=== PATIENT | female | born 1970 | race Caucasian/White ===

== ENCOUNTER 2018-01-07 09:10 | Day surgery (SDC) | payer OTHER ==
[~2018-01-07] VITALS: Ht 162.6 cm; Wt 47.7 kg
[~2018-01-07 09:10] MED LIST: MECL25 PO
[2018-01-07] MEDS ORDERED: GABA600 (09:45)
[2018-01-07] MEDS ORDERED: Diclofenac Pota50 MG (09:45)
[2018-01-07] MEDS ORDERED: TOPI50 (09:45)
[2018-01-07] MEDS ORDERED: PROM25 (09:46)
[2018-01-07] MEDS ORDERED: ALBU90OI61 (09:46)
[2018-01-07] MEDS ORDERED: BUTONI (09:46)
[2018-01-07] MEDS ORDERED: NARA2.5 (09:46)
[2018-01-07] MEDS ORDERED: ZOLP5 (09:46)
[2018-01-07] MEDS ORDERED: Advair Hfa 230-12 GM (09:46)
[2018-01-07] MEDS ORDERED: Citalopram HBr40 MG (09:46)
[2018-01-07] MEDS ORDERED: Flonase 0.05% N16 GM (09:47)
[2018-01-07] MEDS ORDERED: KETO60I (09:47)
== END 2018-01-07 12:10 | disposition home or self-care (01) ==
LOC: ORSCSDS 09:10
PROVIDERS: Obstetrics & Gynecology
PROC: 0UDB8ZX Extraction of Endometrium, Via Natural or Artificial Opening Endoscopic, Diagnostic (ICD-10-PCS; principal; 2018-01-07 10:15)
DX: N95.0 Postmenopausal bleeding (principal); J45.909 Unspecified asthma, uncomplicated; K21.9 Gastro-esophageal reflux disease without esophagitis; F41.8 Other specified anxiety disorders; L93.0 Discoid lupus erythematosus; Z79.899 Other long term (current) drug therapy; F17.210 Nicotine dependence, cigarettes, uncomplicated
CPT/HCPCS: 88305; J0690; J1100; J1885; J2250; J2405; J3010

== ENCOUNTER 2019-05-23 01:36 | Emergency (ER) | payer OTHER ==
[~2019-05-23] VITALS: Ht 162.6 cm; Wt 49.9 kg
[~2019-05-23 01:36] MED LIST changes: +ALBU90OI61; +Advair Hfa 230-12 GM; +BUTONI; +Citalopram HBr40 MG PO; +Diclofenac Pota50 MG; +Flonase 0.05% N16 GM; +GABA600; +KETO60I; +NARA2.5; +PROM25; +TOPI50; +ZOLP5 PO
[2019-05-23] MEDS ORDERED: Prednisone20 MG PO (01:53)
[2019-05-23] MEDS ORDERED: AIMOVIG AU70 MG/1 ML SC (02:05)
[2019-05-23] MEDS ORDERED: BUPROPION XL150 MG PO (02:06)
[2019-05-23] MEDS ORDERED: Nortriptyline H10 MG PO (02:06)
[2019-05-23] MEDS ORDERED: Neurontin600 MG PO (02:06)
[2019-05-23] MEDS ORDERED: DICL25ER PO (02:07)
[2019-05-23] MEDS ORDERED: Ventolin/Prove6.7 GM INH (02:07)
== END 2019-05-23 02:14 | disposition home or self-care (01) ==
LOC: ER 01:36
DX: M54.32 Sciatica, left side (principal); F32.9 Major depressive disorder, single episode, unspecified; J45.909 Unspecified asthma, uncomplicated; G43.909 Migraine, unspecified, not intractable, without status migrainosus; G47.00 Insomnia, unspecified; Z88.2 Allergy status to sulfonamides; Z79.899 Other long term (current) drug therapy; Z79.52 Long term (current) use of systemic steroids; Z79.1 Long term (current) use of non-steroidal anti-inflammatories (NSAID)
CPT/HCPCS: 96372; 99283-25; J1885; J7512

== ENCOUNTER 2019-06-12 15:28 | Emergency (ER) | payer OTHER ==
[~2019-06-12] VITALS: Ht 162.6 cm; Wt 49.9 kg
[~2019-06-12 15:28] MED LIST changes: +AIMOVIG AU70 MG/1 ML SC; +BUPROPION XL150 MG PO; +DICL25ER PO; +Neurontin600 MG PO; +Nortriptyline H10 MG PO; +Prednisone20 MG PO; +Ventolin/Prove6.7 GM INH
== END 2019-06-12 17:45 | disposition left against medical advice (07) ==
LOC: ER 15:28
DX: R20.2 Paresthesia of skin (principal); Z53.20 Procedure and treatment not carried out because of patient's decision for unspecified reasons
CPT/HCPCS: 99283

== ENCOUNTER → 2020-06-15 | Outpatient (CLI) | payer OTHER ==
[2020-06-16 03:17] LABS: Candida species (DNA Probe) Negative (NEGATIVE); G. vaginalis (DNA Probe) Negative (NEGATIVE); T. vaginalis (DNA Probe) Negative (NEGATIVE)
== END ==
LOC: LAB 10:00 → LAB SHORT 10:00
PROVIDERS: Family Medicine
DX: R10.2 Pelvic and perineal pain (principal)
CPT/HCPCS: 87480; 87510; 87660